=== PATIENT | male | born 1955 | race Caucasian/White ===

== ENCOUNTER 2017-02-27 08:00 | Day surgery (SDC) | payer OTHER ==
--- NOTE | ~2017-02-27 | EGD ---
EGD REPORT [facility] [address] [place]. [id number] NAME: MERNA POWERS : [birth year] STATUS : REG [facility] [place] PAT#: [id number] AGE: 61 ADM/REG DATE : 02/27/17 MR#: [id number] REPORT SERV DATE: 02/27/17 DICTATED BY: LAKESHIA SORENSON DATE: 02/27/17 REPORT STATUS : Draft TRANSCRIBED BY: [facility] DATE: 02/27/17 Endoscopy Center Patient Name: Merna Powers Date of : 1955 Attending MD: LAKESHIA SORENSON MD Procedure Date No Time: 02/27/2017 Procedure: Colonoscopy Indications: High risk colon cancer surveillance: Personal history of non-advanced adenoma; last exam 2013. Patient Profile: Informed consent was obtained from the patient by me prior to the procedure. Risks, benefits, and alternatives were discussed including the risk of bleeding, perforation, infection, reaction to medicine, missed lesion, and cardiopulmonary complications. Referring MD: SEVEN MULLEN MD Medicines: Monitored Anesthesia Care Complications: No immediate complications. Procedure: Pre-Anesthesia Assessment: - ASA Grade Assessment: III - A patient with severe systemic disease. After I obtained informed consent, the scope was passed under direct vision. Throughout the procedure, the patient's blood pressure, pulse, and oxygen saturations were monitored continuously. The CF [id number] was introduced through the anus and advanced to the cecum, identified by appendiceal orifice and ileocecal valve. The colonoscope was slowly withdrawn with careful examination all mucosal surfaces including specific attention around flexures and tip deflection behind folds; retroflexion performed in rectum. The colonoscopy was performed without difficulty. The patient tolerated the procedure well. The quality of the bowel preparation was adequate. The ileocecal valve, appendiceal orifice and rectum were photographed. Findings: A flat linear polyp was found in the proximal transverse colon. The polyp was 8 mm in size. The polyp was removed with a cold biopsy forceps. Resection and retrieval were complete. A sessile polyp was found in the descending colon. The polyp was 5 mm in size. The polyp was removed with a cold biopsy forceps. Resection and retrieval were complete. A sessile polyp was found in the rectum. The polyp was 10 mm in size. The polyp was removed with a cold snare. Resection and retrieval were complete. EGD REPORT [facility] [id number] [place]. [address] NAME: MERNA POWERS [place] : [birth year] STATUS : REG [facility]#: [id number] AGE: 61 ADM/REG DATE : 02/27/17 MR#: [id number] REPORT SERV DATE: 02/27/17 DICTATED BY: LAKESHIA SORENSON DATE: 02/27/17 REPORT STATUS : Draft TRANSCRIBED BY: [employer] DATE: 02/27/17 Impression: - One 8 mm polyp in the proximal transverse colon. Resected and retrieved. - One 5 mm polyp in the descending colon. Resected and retrieved. - One 10 mm polyp in the rectum. Resected and retrieved. Recommendation: - Patient has a contact number available for emergencies. The signs and symptoms of potential delayed complications were discussed with the patient. Return to normal activities tomorrow. Written discharge instructions were provided to the patient. - Regular diet. - Continue present medications. - Await pathology results. - Repeat colonoscopy for surveillance based on pathology results. Procedure Code(s): --- Professional --- 51020, Colonoscopy, flexible, proximal to splenic flexure; with removal of tumor(s), polyp(s), or other lesion(s) by snare technique 43705, 59, Colonoscopy, flexible, proximal to splenic flexure; with biopsy, single or multiple Diagnosis Code(s): --- Professional --- K62.1, Rectal polyp D12.4, Benign neoplasm of descending colon D12.3, Benign neoplasm of transverse colon Z86.010, Personal history of colonic polyps CPT copyright 2013 [employer]. All rights reserved. The codes documented in this report are preliminary and upon stitchdowns toe former review may be revised to meet current compliance requirements. LAKESHIA SORENSON MD 02/27/2017 10:16 AM This report has been signed electronically. Number of Addenda: 0 Note Initiated On: 02/27/2017 9:38 AM Scope Withdrawal Time 0 hours 16 minutes 59 seconds [id number] [place] [id number]
[~2017-02-27 08:00] MED LIST: ALTA5 PO; ASAB PO; CRESTOR20 MG PO; CYANO1000T PO; FISH OIL1200 MG PO; FISH-EPA1000 MG PO; GLUCPH; INVOKANA300 MG PO; JANUMET1 TA1 PO; LOZOLTAB PO; MICRONASE5 MG PO; MULTIPLE VIT PO; NIACOR500 MG PO; PYCNOGENOL PO; VITAMIN B PO
== END 2017-02-27 23:59 | disposition home or self-care (01) ==
LOC: DMU 08:00
PROVIDERS: Internal Medicine Gastroenterology
PROC: 0DBP8ZX Excision of Rectum, Via Natural or Artificial Opening Endoscopic, Diagnostic (ICD-10-PCS; 2017-02-27)
PROC: 0DBL8ZX Excision of Transverse Colon, Via Natural or Artificial Opening Endoscopic, Diagnostic (ICD-10-PCS; principal; 2017-02-27 09:30)
PROC: 0DBM8ZX Excision of Descending Colon, Via Natural or Artificial Opening Endoscopic, Diagnostic (ICD-10-PCS; 2017-02-27 09:30)
DX: Z12.11 Encounter for screening for malignant neoplasm of colon (principal); D12.3 Benign neoplasm of transverse colon; K63.5 Polyp of colon; I10 Essential (primary) hypertension; G47.33 Obstructive sleep apnea (adult) (pediatric); E11.9 Type 2 diabetes mellitus without complications; Z88.0 Allergy status to penicillin; Z88.1 Allergy status to other antibiotic agents; Z79.82 Long term (current) use of aspirin; Z79.899 Other long term (current) drug therapy; Z98.890 Other specified postprocedural states
CPT/HCPCS: 82962; 88305